=== PATIENT | female | born 1955 | race African-American/Black ===

== ENCOUNTER → 2016-10-07 | Outpatient (CLI) | payer OTHER ==
--- NOTE | ~2016-10-07 | MR103 ---
[facility] A Service of [facility] RADIOLOGY TEXT RESULTS PATIENT: GLENDY CROWELL LOCATION: [facility] : 57 UNIT #: [id number] AGE: [address]: Tr Potts MD SEX: F ORDER DR: [id number] [facility] [address] [place], [place] [address] [id number] O MR#: [id number] Acc #: [id number] NAME: GLENDY CROWELL : 1955 SEX: F STUDY DATE/TIME: 10/07/2016 15:16 UNIT: [facility] ROOM: STUDY DESCRIPTION: MR Knee Wo Contrast Lt Attending Physician: Tr Potts M.D. Referring Physician: Tr Potts M.D. Primary Care Physician: [facility] MRI CENTER REPORT This report is preliminary unless electronic signature is present. EXAM MRI of the left knee, 10/07/2016 COMPARISON No correlative studies. HISTORY Order states pain left knee, tender plica, ? joint line pain. 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 Persistent medial pain since injury. No falls and no knee surgery. FINDINGS There is no effusion or popliteal cyst. Patellofemoral alignment and articular cartilage are normal. Quadriceps and patellar tendons are intact. There is minimal inflammation superficial to the patellar tendon. This is nonspecific. Cruciate ligaments are intact. The lateral meniscus, the lateral collateral ligament complex, and popliteus tendon are intact. Articular cartilage of the lateral compartment is normal. The medial meniscus, MCL, and medial compartment articular cartilage are normal. There is a deep posteromedial inflammation/edema in the region of the medial femoral condyle which appears to be secondary to moderate medial gastrocnemius tendinosis. There is no obvious signal void to suggest calcification such as could be seen with calcific tendinitis (calcium hydroxyapatite deposition disease). [facility] A Service of [facility] RADIOLOGY TEXT RESULTS PATIENT: GLENDY CROWELL [facility] UNIT #: [id number] AGE: [address]: Tr Potts MD SEX: F ORDER DR: No marrow lesion, fracture, or loose body is noted. 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 There is no visible plica abnormality. IMPRESSION 1. Moderate medial gastrocnemius tendinosis and peritendinous inflammation near the origin and posteromedial distal femur. 2. 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 Patellar cartilage is normal. 3. No plica abnormality is visualized. 4. Cruciate ligaments and menisci are normal. Dictated by... Leticia Carlson M.D. THIS IS AN ELECTRONICALLY VERIFIED REPORT Leticia Carlson M.D. at 10/08/2016 1:48 PM GOLDIE/elisa TD: 10/08/2016 11:32 JOB #: [id number] MRI CENTER REPORT Page 1 of 1 COPY
== END | disposition home or self-care (01) ==
LOC: CMRI 14:46
DX: M25.562 Pain in left knee (principal); M94.262 Chondromalacia, left knee; M76.9 Unspecified enthesopathy, lower limb, excluding foot
CPT/HCPCS: 73721